=== PATIENT | male | born 1980 ===

== ENCOUNTER 2018-05-24 03:48 | Emergency (ER) | payer OTHER ==
[2018-05-24 04:16] VITALS: BP 132/86; PULSE 104; TEMP 98.2; BMI 27.9
[2018-05-24] MEDS ORDERED: IBUPROFEN 600 MG TABLET (FP) PO ONE (04:38)
[2018-05-24] MEDS ORDERED: DIPHTH,PERTUSS(ACELL),TET 0.5 ML DISP.SYRIN IM ONE (04:38)
[2018-05-24] MEDS ORDERED: LIDOCAINE HCL 2% (50ML VIAL) SQ ONE (04:39)
[2018-05-24] MEDS ORDERED: LIDOCAINE HCL 2% (20ML MULTI-DOSE VIAL) NR ONE (05:00)
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
== END 2018-05-24 06:54 | disposition home or self-care (01) ==
LOC: JER 03:48
PROC: 0HQNXZZ Repair Left Foot Skin, External Approach (ICD-10-PCS; principal; 2018-05-24)
PROC: 3E0234Z Introduction of Serum, Toxoid and Vaccine into Muscle, Percutaneous Approach (ICD-10-PCS; 2018-05-24)
DX: S99.922A Unspecified injury of left foot, initial encounter (principal); S01.81XA Laceration without foreign body of other part of head, initial encounter; W22.01XA Walked into wall, initial encounter; Y93.89 Activity, other specified; Y92.008 Other place in unspecified non-institutional (private) residence as the place of occurrence of the external cause
CPT/HCPCS: 73630-TC-LT; 90715; 99282-25